=== PATIENT | female | born 1980 | race African-American/Black ===

== ENCOUNTER 2019-06-14 21:24 | Emergency (ER) | payer OTHER ==
[~2019-06-14] VITALS: Ht 165.1 cm; Wt 77.0 kg
[2019-06-14] MEDS ORDERED: ONDANSETRON HCL 4MG/2ML INJ IV STA (21:59)
[2019-06-14] MEDS ORDERED: SODIUM CHLORIDE 0.9% 1,000 ML IV ONE (21:59)
[2019-06-14 22:49] LABS: BASOPHILS % 1.1 % (0.0-2.0); EOSINOPHILS % 1.6 % (0.0-5.0); HEMATOCRIT. 33.3 % (36.0-48.0); HEMOGLOBIN. 10.9 g/dL (12.0-16.0); LYMPHOCYTES % 47.7 % (20.0-50.0); MEAN CORPUSCULAR HEMOGLOBIN 25.3 pg (28.0-32.0); MEAN CORPUSCULAR VOLUME 77.3 fL (81.0-99.0); MEAN PLATELET VOLUME 7.1 fl (7.4-10.4); MONOCYTES % 6.6 % (2.0-8.0); PLATELET 318 x1000/uL (130-400); RED BLOOD CELL COUNT 4.31 mill/uL (4.2-5.4); RED CELL DISTRIBUTION WIDTH 16.5 % (11.6-14.6)
[2019-06-14 22:54] LABS: CHLORIDE 110 mEq/L (98-107); HCG SCREEN NEGATIVE
[2019-06-14 22:57] LABS: ETHANOL BLOOD 227 mg/dL
[2019-06-14 23:02] LABS: CREATINE KINASE 130 IU/L (26-192)
[2019-06-14 23:05] LABS: CREATINE KINASE MB FRACTION < 1.0 ng/mL (0.5-3.6)
[2019-06-14 23:16] LABS: *AMPHETAMINES SCREEN URINE NEGATIVE (NEGATIVE); *BARBITURATES SCREEN URINE NEGATIVE (NEGATIVE); *BENZODIAZEPINES SCREEN URINE NEGATIVE (NEGATIVE); CANNABINOID URINE SCREEN NEGATIVE (NEGATIVE); METHADONE URINE SCREEN NEGATIVE (NEGATIVE); PHENCYCLIDINE URINE SCREEN NEGATIVE (NEGATIVE)
[2019-06-14 23:17] LABS: *COCAINE SCREEN URINE NEGATIVE (NEGATIVE)
[2019-06-15 00:59] VITALS: BP 125/85
[2019-06-17 20:36] LABS: OPIATES URINE SCREEN NEGATIVE (NEGATIVE)
== END 2019-06-15 01:20 | disposition home or self-care (01) ==
LOC: ER 21:24
DX: R53.1 Weakness (principal); R11.0 Nausea; D64.9 Anemia, unspecified; T51.91XA Toxic effect of unspecified alcohol, accidental (unintentional), initial encounter; F10.10 Alcohol abuse, uncomplicated; Y92.9 Unspecified place or not applicable; Y90.7 Blood alcohol level of 200-239 mg/100 ml
CPT/HCPCS: 36415; 71045; 80053; 80305; 80320; 81025; 82550; 82553; 83690; 83880; 84443; 84484; 84703; 85025; 87804; 93005; 96360; 99285; J7030; J2405; G0480